=== PATIENT | female | born 1980 | race Two or more races ===

== ENCOUNTER 2017-12-17 19:33 | Emergency (ER) | payer MEDICAID ==
[~2017-12-17] VITALS: Ht 157.5 cm; Wt 72.6 kg
[~2017-12-17 19:33] MED LIST: ALBUTEROL SULF8.5 GM INH; COLACE100 MG ORAL; IBUPROFEN600 MG ORAL; NAPROSYN500 M1 ORAL; NKM; PREDNISONE20 MG ORAL; PROMETHAZINE-C118 M1 ORAL; VALIUM10 MG ORAL
[2017-12-17] MEDS ORDERED: HYDROcodone/Acetamin 7.5/325 tab ORAL ONE (20:15)
[2017-12-17] MEDS ORDERED: Hydrogen Peroxide 473ml Bottle TOPIC ONE (20:15)
[2017-12-17] MEDS ORDERED: Hurricaine 20% Spray ORO ONE (20:15)
--- NOTE | 2017-12-17 20:25 | Emergency Room Report ---
History of Present Illness General Chief Complaint: Toothache Source: Patient Present Illness HPI 37 YO Female presents to the emergency department complaining of 10 out of 10 in severity right lower molar pain, swelling about the gum and tenderness x3 days. Patient reports that she had wisdom tooth removal Two weeks ago and she has been having intermittent pain ever since. Pt. reports she had really foul smelling breath x 3 days as well. denies neck pain/stiffness, reports swollen neck lymph nodes. She denies fevers or chills. States that she attempted to contact her Dentist however next available appt. is not until January. Denies CP, Palpitations, LOC, AMS, dizziness, Changes in Vision, Sensation, paresthesias, or a sudden severe headache. Allergies: Coded Allergies: No Known Allergies (Unverified , 03/10/14) Patient History Past Medical History: see triage record Past Surgical History: none Pertinent Family History: none Last Menstrual Period: jul 02 2017 Now: No Reviewed Nursing Documentation: PMH: Agreed, PSxH: Agreed Review of Systems All Other Systems: negative except mentioned in HPI Physical Exam Vital Signs Date Time Temp Pulse Resp B/P (MAP) Pulse Ox O2 Delivery O2 Flow Rate FiO2 12/17/17 19:44 98.2 74 18 125/79 98 Room Air Sp02 EP Interpretation: reviewed, normal General Appearance: no apparent distress, alert, GCS 15, non-toxic Head: normocephalic, atraumatic ENT: hearing grossly normal, normal voice, other - swelling about the gum line of the right lower wisdome tooth. the tooth has been extracted, no obvious fb in the pocket, gum is erythematous and fluctuance palpated on buccal side which extends up some of the right lower cheek that is adjacent. swelling, tenderness as well. fullness of the right lower jaw line is visualized. Neck: full range of motion, no meningismus Respiratory: lungs clear, normal breath sounds, speaking full sentences Cardiovascular #1: regular rate, rhythm Rectal: deferred Genitourinary: normal inspection Musculoskeletal: back normal, gait/station normal, normal range of motion, non- tender Neurologic: alert, oriented x3, responsive, sensory intact, speech normal, grossly normal Psychiatric: judgement/insight normal Skin: normal color, no rash, warm/dry, well hydrated Lymphatic: other - sub mandibular LAD bilaterally. fullness of the right lower jaw line is visualized. Procedures Incision and Drainage Incision and Drainage : Consent: Verbal Site: Right lower gum line adjacent to wisdom tooth. Blade Size: 11 Wound Location: other - Right lower gum line adjacent to wisdom tooth. Wound's Depth, Shape: superficial Wound Length (cm): 1 Wound Explored: contaminated - purulence and blood expressed. Irrigated w/ Saline (ccs): 500 Anesthesia: other - 2% viscous lidocaine Volume Anesthetic (ccs): 10 Splint Applied?: No Sling Applied?: No Patient Tolerated: Well Complications: None Medical Decision Making PA Attestation Dr. Infante is my supervising Physician whom patient management has been discussed with. Diagnostic Impression: Primary Impression: Gum abscess ER Course swelling about the gum line of the right lower wisdom tooth. the tooth has been extracted, no obvious fb in the pocket, gum is erythematous and fluctuance palpated on buccal side which extends up some of the right lower cheek that is adjacent. swelling, tenderness as well. fullness of the right lower jaw line is visualized. Ddx considered but are not limited to cellulitis, dental abscess, orbital cellulitis, d/l tooth, dental pain. trigeminal neuralgia Vital signs: are WNL, pt. is afebrile H&PE are most consistent with fluctuant gum abscess.--swelling about the gum line of the right lower wisdome tooth. the tooth has been extracted, no obvious fb in the pocket, gum is erythematous and fluctuance palpated on buccal side which extends up some of the right lower cheek that is adjacent. swelling, tenderness as well. fullness of the right lower jaw line is visualized. ORDERS: none required at this time, the diagnosis is clinical ED INTERVENTIONS: - H202 rinse before and after procedure. -Pain Control PO -I & D DISCHARGE: At this time pt. is stable for d/c to home. Will provide printed patient care instructions, and any necessary prescriptions. Care plan and follow up instructions have been discussed with the patient prior to discharge. Last Vital Signs Date Time Temp Pulse Resp B/P (MAP) Pulse Ox O2 Delivery O2 Flow Rate FiO2 12/17/17 19:44 98.2 74 18 125/79 98 Room Air Disposition: HOME, SELF-CARE Condition: Stable Scripts Acetaminophen With Codeine (T#3) (TYLENOL #3 TAB*) Y Tab 1 TAB ORAL Q6HR Y for For Pain, #6 TAB Prov: Karolina Sandoval 12/17/17 Ibuprofen* (MOTRIN*) 600 Mg Tablet 600 MG ORAL THREE TIMES A DAY, #20 TAB 0 Refills Prov: Karolina Sandoval 12/17/17 Amoxicillin/Potassium Clav 875-125 Mg Tab* (AMOX TR-K CLV 875-125 MG TAB*) 1 Each Tablet 1 TAB ORAL EVERY 12 HOURS for 7 Days, #14 TAB Prov: Karolina Sandoval 12/17/17 Patient Instructions: Dental Pain Additional Instructions: Take medications as directed. Follow up with a Dentist in 3-5 days, even if your symptoms have resolved. * * --Please review list of Dental clinics, if you do not already have a Dentist Return sooner to ED if new symptoms occur, or current symptoms become worse. Do not drink alcohol, drive, or operate heavy machinery while taking Tylenol # 3 as this may cause drowsiness. - Please note that this Emergency Department Report was dictated using Getbazzach[employer] disease epidemiologist technology software, occasionally this can lead to erroneous entry secondary to interpretation by the dictation equipment. Karolina Sandoval Dec 17, 2017 20:25
[2017-12-17] MEDS ORDERED: IBUPROFEN600 MG ORAL (20:29)
[2017-12-17] MEDS ORDERED: ACETAMINOPHEN-1 EAC1 ORAL ×2 (20:29→21:26)
[2017-12-17] MEDS ORDERED: AMOX TR-K CLV1 EAC2 ORAL (20:29)
[2017-12-17] MEDS ORDERED: Lidocaine 2% Visc 15ml soln ORAL ONE (20:45)
[2017-12-17 21:37] VITALS: BP 125/79
[2017-12-17] MEDS ORDERED: CHLORHEXIDINE473 ML MM (21:55)
== END 2017-12-17 21:38 | disposition home or self-care (01) ==
LOC: EMR 20:25
DX: K05.219 Aggressive periodontitis, localized, unspecified severity (principal)
CPT/HCPCS: 41800; 99284; Z7502; 10060

== ENCOUNTER 2018-07-27 17:18 | Emergency (ER) | payer MEDICAID ==
[~2018-07-27] VITALS: Ht 154.9 cm; Wt 73.5 kg
[~2018-07-27 17:18] MED LIST changes: +ACETAMINOPHEN-1 EAC1 ORAL; +AMOX TR-K CLV1 EAC2 ORAL; +CHLORHEXIDINE473 ML MM
[2018-07-27 17:41] VITALS: BP 113/68
[2018-07-27] MEDS ORDERED: CORTISPORIN EAR10 ML RIGHT EAR (17:56)
--- NOTE | 2018-07-27 17:56 | Emergency Room Report ---
History of Present Illness General Chief Complaint: Earache Source: Patient Present Illness HPI 38-year-old female patient presents ER complaining of right earache for the past 4 days. Reports she uses Q-tips. DEnies ear drainage. Denies history of swimming. Denies vertigo or vision changes. Denies fever, chest pain, shortness of breath. Reports past few days has developed some runny nose, denies acute trauma. Denies fever, chest pain, shortness of breath. Allergies: Coded Allergies: No Known Allergies (Unverified , 03/10/14) Patient History Past Medical History: see triage record Now: No Reviewed Nursing Documentation: PMH: Agreed; PSxH: Agreed Nursing Documentation-PMH Past Medical History: No History, Except For Review of Systems All Other Systems: negative except mentioned in HPI Physical Exam Vital Signs Date Time Temp Pulse Resp B/P (MAP) Pulse Ox O2 Delivery O2 Flow Rate FiO2 07/27/18 17:31 98.4 74 17 113/68 98 Room Air 98.4 Sp02 EP Interpretation: reviewed, normal General Appearance: well appearing, no apparent distress, alert, GCS 15, non- toxic Head: normocephalic, atraumatic, other - no erythema or edema over mastoid process bilatereally Eyes: bilateral eye normal inspection, bilateral eye PERRL ENT: hearing grossly normal, normal pharynx, no angioedema, normal voice, TMs + canals normal - left ear, uvula midline, moist mucus membranes, other - right ear: Erythematous and mildly edematous ear canal, pain with ear pulling, non- erythematous TM, no discharge Neck: full range of motion Respiratory: lungs clear, normal breath sounds, no rhonchi, no respiratory distress, no accessory muscle use, no wheezing, speaking full sentences Cardiovascular #1: regular rate, rhythm, no edema Neurologic: alert, oriented x3, responsive, motor strength/tone normal, sensory intact Psychiatric: mood/affect normal Skin: no rash Lymphatic: no adenopathy Medical Decision Making PA Attestation Dr. Silveira is my supervising Physician whom patient management has been discussed with. Diagnostic Impression: Primary Impression: Otitis externa ER Course Pt presents to ED c/o ear pain. DDX considered but are not limited to rhinitis, sinusitis, otitis media, otitis externa, cellulitis, mastoiditis, cerumen impaction. Low suspicion for mastoiditis, no swelling or erythema noted posterior to ear, no TTP. VITAL SIGNS are WNL, patient is afebrile. ORDERS: none required at this time, diagnosis is clinical ED INTERVENTIONS: physical exam shows nonerythematous TM without effusion, no rupture, erythematous and edematous ear canal, pain with ear pulling. likely otitis externa. no purulent discharge or drainage. No excessive cerumen. Avoid swimming. do not use q-tips. take Claritin for allergy symptoms, available [id number]. DISCHARGE: -Rx provided for Neomycin/polmyxin B At this time pt is stable for d/c to home. resting comfortably chest, nontoxic appearing. Patient to take medications as instructed Will provide with patient care instructions and any necessary prescriptions. Care plan and follow-up instructions provided. Patient instructed to follow-up with primary care in 3 - 5 days. Patient provided with list of clinics to establish care if unable to contact current PCP. Patient questions asked and answered. ER precautions given. Patient instructed to return to ER immediately for any new or worsening of symptoms including but not limited to increasing SOB, persistent fever. - Please note that this Emergency Department Report was dictated using [employer] sampler technology software, occasionally this can lead to erroneous entry secondary to interpretation by the dictation equipment. Last Vital Signs Date Time Temp Pulse Resp B/P (MAP) Pulse Ox O2 Delivery O2 Flow Rate FiO2 07/27/18 17:41 98.4 17 113/68 98 Room Air 98.4 07/27/18 17:31 74 Disposition: HOME, SELF-CARE Condition: Stable Scripts Neomycin/Polymyxin B Sulf/Hc* (CORTISPORIN EAR SOLUTION*) 10 Ml Solution 4 DROP RIGHT EAR QID, #10 ML 0 Refills Prov: Steven Partida 07/27/18 Patient Instructions: Otitis Externa, [id number] Additional Instructions: Followup with primary care provider in 3 -5 days. Do not use Q-tips. Take Claritin [id number] for allergy relief of symptoms. Take medications as directed. Patient questions asked and answered. ER precautions given, patient instructed to return to ER immediately for any new or worsening of symptoms. Steven Partida Jul 27, 2018 17:56
[2018-07-27 18:02] VITALS: BP 113/68
== END 2018-07-27 18:02 | disposition home or self-care (01) ==
LOC: EMR 17:49
DX: H60.91 Unspecified otitis externa, right ear (principal)
CPT/HCPCS: 99282